=== PATIENT | male | born 1955 | race Caucasian/White ===

== ENCOUNTER 2019-11-19 15:31 | Inpatient (IN) | payer BC ==
[2019-11-19] MEDS ORDERED: ASPIRIN 81 MG CHEWABLE TABLETS PO ONE (15:36)
--- NOTE | 2019-11-19 15:36 | PDOC ---
Rapid Medical Evaluation Time Seen by Provider: 11/19/19 15:33 Medical Evaluation: Allergies Allergy/AdvReac Type Severity Reaction Status Date / Time No Known Allergies Allergy Unverified 03/30/14 07:56 11/19/19 15:33 I have performed a brief in-person evaluation of this patient. The patient presents with a chief complaint of: hx of HTN, HLD. c/o chest pain/ heaviness since last night. PCP: Dr. Spann Cards: [place] Pertinent physical exam findings: well appearing, lungs CTAB I have ordered the following: cards workup The patient will proceed to the ED for further evaluation. Discharge Disposition - Diagnosis Chest pain - Referrals Referrals: Cristian Spann MD [Primary Care Provider] - - Patient Instructions - Post Discharge Activity
[2019-11-19 15:38] VITALS: BMI 29.1
--- NOTE | 2019-11-19 16:25 | PDOC ---
History of Present Illness - History of Present Illness Initial Comments: 11/19/19 17:13 64 yo M PMH HTN, HLD, mild aortic regurgitation (equipment specialist is Dr. Sanchez), presenting with chest pain. Reports that it began last night, 5, pressure across his entire chest, non- radiating, associated with SOMERS but without SOB at rest, also without nausea or vomiting. Has never had this type of pain before, and it is ongoing; kept him from sleeping well overnight. Notably, patient drove back from [place] last night ([address] Specifically denies history of DVT or clots, recent surgery/immobilization, hemoptysis. 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 <Skye Onofre - Last Filed: 11/22/19 17:04> <Alva Dominguez - Last Filed: 11/24/19 12:46> - General Chief Complaint: Chest Pain Stated Complaint: CHEST PAIN Time Seen by Provider: 11/19/19 15:33 Past History - Past Medical History Cardiac Disorders: Yes (MILD AORTIC REGURGITATION) HTN: Yes Hypercholesterolemia: Yes - Psycho Social/Smoking Cessation Hx Smoking History: Never smoked Have you smoked in the past 12 months: No Hx Alcohol Use: No Drug/Substance Use Hx: No Substance Use Type: None <Skye Onofre - Last Filed: 11/22/19 17:04> <Alva Dominguez - Last Filed: 11/24/19 12:46> - Past Medical History Allergies/Adverse Reactions: Allergies Allergy/AdvReac Type Severity Reaction Status Date / Time No Known Allergies Allergy Unverified 03/30/14 07:56 Home Medications: Ambulatory Orders Irbesartan 150 mg PO DAILY 03/30/14 Amlodipine Besylate [Norvasc -] 2.5 mg PO DAILY #30 tablet 01/12/16 Atorvastatin Ca [Lipitor] 10 mg PO HS 11/19/19 Metoprolol Succinate [Toprol XL -] 25 mg PO DAILY #30 tab.sr.24h 11/20/19 Review of Systems - Review of Systems Comments:: 11/19/19 17:23 GENERAL/CONSTITUTIONAL: denies fever, chills, diaphoresis, generalized weakness , malaise, loss of appetite, weight change HEAD, EYES, EARS, NOSE AND THROAT: denies rhinorrhea, nasal congestion, throat pain, throat swelling, difficulty swallowing, mouth swelling, ear pain, eye pain , visual changes NEUROLOGIC: denies headache, focal weakness or paresthesias, dizziness, unsteady gait, seizure, mental status changes, bladder or bowel incontinence CARDIOVASCULAR: endorses chest pain and SOMERS. Denies syncope, palpitations, irregular heart rate, lightheadedness, peripheral edema RESPIRATORY: denies cough, shortness of breath, dyspnea with exertion, orthopnea , wheezing, stridor, hemoptysis GASTROINTESTINAL: denies abdominal pain, abdominal distension, nausea, vomiting , diarrhea, constipation, melena, hematochezia GENITOURINARY: denies dysuria, frequency, urgency, hesitancy, hematuria, flank pain, genital pain MUSCULOSKELETAL: denies myalgia, arthralgia, joint swelling, back pain, neck pain SKIN: denies rash, itching, pallor HEMATOLOGIC/IMMUNOLOGIC: denies easy bleeding, easy bruising, lymphadenopathy, frequent infections ENDOCRINE: denies unexplained weight gain, unexplained weight loss, heat intolerance, cold intolerance PSYCHIATRIC: denies anxiety, depression, suicidal or homicidal ideation, hallucinations <Skye Onofre - Last Filed: 11/22/19 17:04> *Physical Exam - Vital Signs Last Vital Signs Temp Pulse Resp BP Pulse Ox 97.8 F 85 20 148/86 98 11/19/19 15:33 11/19/19 15:33 11/19/19 15:33 11/19/19 15:33 11/19/19 15:33 - Physical Exam 11/22/19 17:52 Gen: well-developed, well-nourished, NAD Neuro: AAOX4, CN II-XII intact, FTN intact, EOMI, PERRLA, 5/5 strength, SILT HEENT: atraumatic, normocephalic Neck: trachea midline, supple CV: regular rate, regular rhythm, no murmurs, rubs, or gallops Pulm: CTA b/l, no wheezing Abd: soft, non-distended, non-tender MSK: full ROM, intact pulses Extr: no edema, no deformities Skin: warm, dry <Skye Onofre - Last Filed: 11/22/19 17:04> - Vital Signs Last Vital Signs Temp Pulse Resp BP Pulse Ox 98.2 F 67 18 139/78 98 11/20/19 16:48 11/20/19 16:48 11/20/19 16:48 11/20/19 16:48 11/20/19 16:48 <Alva Dominguez - Last Filed: 11/24/19 12:46> Heart Score/ECG Review - History History: Moderately suspicious - Electrocardiogram EKG: Normal - Age Age: 45-65 - Risk Factors Risk Factors Heart Score: Yes Hx Hypercholesterolemia, Yes Hx Hypertension Based on the list above the patient has:: 1-2 risk factors <Skye Onofre - Last Filed: 11/22/19 17:04> ED Treatment Course - LABORATORY CBC & Chemistry Diagram: 11/20/19 05:57 11/20/19 06:00 <Skye Onofre - Last Filed: 11/22/19 17:04> - LABORATORY CBC & Chemistry Diagram: 11/20/19 05:57 11/20/19 06:00 - ADDITIONAL ORDERS Additional order review: 11/19/19 15:50 RBC 4.12 MCV 97.0 H MCHC 33.2 RDW 14.2 MPV 9.9 Neutrophils % 73.7 Lymphocytes % 14.5 D Monocytes % 11.0 H Eosinophils % 0.4 Basophils % 0.4 - Medications Given in the ED: ED Medications Discontinued Medications Generic Name Dose Route Start Last Admin Trade Name Freq PRN Reason Stop Dose Admin Acetaminophen 975 mg 11/19/19 17:54 11/19/19 19:46 Tylenol - PO 11/19/19 17:55 975 mg ONCE ONE Administration Aspirin 162 mg 11/19/19 15:36 11/19/19 16:50 Asa - PO 11/19/19 15:37 162 mg ONCE ONE Administration Aspirin 162 mg 11/20/19 03:17 11/20/19 03:51 Asa - PO 11/20/19 03:18 162 mg ONCE ONE Administration Aspirin 81 mg 11/20/19 10:00 11/20/19 10:13 Asa - PO 81 mg DAILY GABE Administration Atorvastatin Calcium 80 mg 11/20/19 04:10 11/20/19 05:54 Lipitor - PO 11/20/19 04:11 80 mg ONCE ONE Administration Clopidogrel Bisulfate 300 mg 11/20/19 03:17 11/20/19 03:51 Plavix - PO 11/20/19 03:18 300 mg ONCE ONE Administration Clopidogrel Bisulfate 75 mg 11/20/19 10:00 11/20/19 10:13 Plavix - PO 75 mg DAILY GABE Administration Enoxaparin Sodium 80 mg 11/20/19 03:17 11/20/19 03:51 Lovenox - SQ 11/20/19 03:18 80 mg ONCE ONE Administration Enoxaparin Sodium 20 mg 11/20/19 04:45 11/20/19 05:54 Lovenox - SQ 11/20/19 04:46 20 mg ONCE ONE Administration Enoxaparin Sodium 100 mg 11/20/19 15:00 11/20/19 15:50 Lovenox - SQ 100 mg Q12H GABE Administration Metoprolol Tartrate 25 mg 11/20/19 10:00 11/20/19 15:50 Lopressor - PO 25 mg BID GABE Administration Nitroglycerin 0.4 mg 11/19/19 18:11 11/19/19 19:46 Nitrostat - SL 11/19/19 18:12 0.4 mg ONCE ONE Administration Regadenoson 0.4 mg 11/20/19 12:00 11/20/19 12:55 Lexiscan IVPUSH 11/20/19 12:01 0.4 mg ONCE ONE Administration <DominguezAlva Maylin - Last Filed: 11/24/19 12:46> Medical Decision Making - Medical Decision Making 11/19/19 17:32 Concern for ACS vs PE. Wells score 0, so will get D-dimer for r/o PE. - CBC, CMP - EKG, CXR - cardiac profile - D-dimer - patient received 162mg aspirin already 11/19/19 17:47 EKG normal sinus at 73 bpm, no ischemic changes. Labs unremarkable, trop negative. Heart score of 3, consistent with low risk for MACE within 6 weeks. Patient complaining of ongoing pain. Will give 975mg PO acetaminophen. 11/19/19 17:58 CXR without acute pathology. Will f/u D-dimer. If negative, will contact Dr. Sanchez to get his recommendations. Assuming patient's pain resolves, possible dc for further outpatient management by primary care and cardiology. 11/19/19 18:22 D-dimer positive. Will get chest CTA. Cr 1. <Skye Onofre - Last Filed: 11/22/19 17:04> Discharge - Discharge Information Problems reviewed: Yes - Admission No <Skye Onofre - Last Filed: 11/22/19 17:04> - Discharge Information Problems reviewed: Yes - Admission Yes <Alva Dominguez - Last Filed: 11/24/19 12:46> - Discharge Information Clinical Impression/Diagnosis: Chest pain, Chest pain, rule out acute myocardial infarction Condition: Stable
[2019-11-19 16:26] LABS: BASO % 0.4 % (0-2.0); EOS % 0.4 % (0-4.5); HEMOGLOBIN 13.3 GM/dL (11.7-16.9); LYMPH % 14.5 % (8-40); MCH 32.2 pg (25.7-33.7); MCHC 33.2 g/dl (32.0-35.9); MEAN PLT VOLUME 9.9 fl (7.5-11.1); NEUT % 73.7 % (42.8-82.8); PLATELET COUNT 141 K/MM3 (134-434); RBC 4.12 M/mm3 (4.00-5.60); RDW 14.2 % (11.9-15.9); WHITE BLOOD COUNT 6.3 K/mm3 (4.0-10.0)
[2019-11-19] MEDS ORDERED: ASPIRIN 81 MG CHEWABLE TABLETS ONE (16:48)
[2019-11-19 16:49] LABS: ALBUMIN 3.5 g/dl (3.4-5.0); BILIRUBIN,TOTAL 1.1 mg/dL (0.2-1); BLOOD UREA NITROGEN 16.5 mg/dL (7-18); CALCIUM 9.4 mg/dL (8.5-10.1); MAGNESIUM 2.1 mg/dL (1.8-2.4); POTASSIUM 4.2 mmol/L (3.5-5.1); TOT PROT 6.7 g/dl (6.4-8.2)
--- NOTE | 2019-11-19 17:07 | PDOC ---
Attending Attestation - Resident Resident Name: Skye Onofre - ED Attending Attestation I have performed the following: I have examined & evaluated the patient, The case was reviewed & discussed with the resident, I agree w/resident's findings & plan - HPI HPI: 11/19/19 18:00 64 yo M PMH HTN, HLD, mild aortic regurgitation (finance consultant is Dr. Sanchez), presenting with substernal/anterior chest pain since last night. described as chest "heaviness," no radiating features, a/w exertion and walking up flight of stairs. Reports that it began last night, 02/07, pressure across his entire chest, non- radiating, associated with SOMERS but without SOB at rest, also without nausea or vomiting. no prior symptoms of this type of chest pain. Notably, patient drove back from [place] last night (2.[address] Specifically denies history of DVT or clots, recent surgery/immobilization, hemoptysis. 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 relatively mobile and ambulatory.. 11/19/19 18:14 - Physicial Exam PE: 11/19/19 17:06 Agree with the resident's HPI and PE as documented in the electronic medical record. NAD, well appearing, EOMI, PERRL, nl conjunctiva, anicteric; neck supple. lungs clear, RRR, no murmur, abdomen soft nontender. No rebound, no guarding. Back nontender. MCMILLAN x4, no focal neuro deficits. No peripheral edema. normal color for ethnicity, WWP. no calf tenderness 11/20/19 09:29 - Medical Decision Making 11/19/19 17:06 Vital Signs Temp Pulse Resp BP Pulse Ox 97.8 F 85 20 148/86 98 11/19/19 15:33 11/19/19 15:33 11/19/19 15:33 11/19/19 15:33 11/19/19 15:33 VS reviewed, wnl, reassuring. DDx chest pain: ACS, coronary vasospasm, NSTEMI, arrhythmia, unstable angina, PE , dissection, PUD, esophageal spasm, GERD, gastritis, costochondritis, pneumonia , pleurisy, pericarditis/myocarditis. dehydration, electrolyte/metabolic derangements. Considered but clinically doubt based on HPI and PE: Low suspicion for pulmonary embolism or dissection. Chest pain negative: No evidence of ACS, pericarditis, myocarditis, pulmonary embolism, pneumothorax, pneumonia, Zoster, or esophageal perforation. Historically not abrupt in onset, tearing or ripping, pulses symmetric, no evidence of aortic dissection. 11/19/19 17:53 EKG normal sinus rhythm at 73 bpm, no interval abnormalities, narrow QRS, ST and T wave segments and morphology normal. Chest pain HEART score 4 which denotes mod risk and probability for ACS, less than 14-16% risk for MACE at 4-6 wks given analgesia here, 5/10, chest "heaviness" anteriorly/substernal, a/w SOB and exertional component. trial nitroglycerin 0.4mg x1, cards cs with Dr Sanchez. 11/19/19 18:01 Interpreted by ED Physician: CXR (2 view): no acute abnormality: no infiltrates , bones appear intact and structures normal alignment, cardiac silhouette within normal limits. no free air under diaphragm, no pneumothorax. CTA indicated with +dimer, and cp/sob, wells score is low (zero) without hemoptysis, no malignancy. no prolonged immobilization/surgeries. more likely ACS, cardiac related cp/unstable angina. CTA results pending - unremarkable for PE, incidental granulomas serial trop, EKG/tele monitor, pain control, provocative testing, d/w Dr Mosher, service control operator for Dr Sanchez admit observation tele for chest pain, KIMBERLEY. 11/20/19 09:29 11/20/19 09:29 Heart Score/ECG Review - History History: Moderately suspicious - Electrocardiogram EKG: Normal - Age Age: 45-65 - Risk Factors Risk Factors Heart Score: Yes Hx Hypercholesterolemia, Yes Hx Hypertension, Yes Positive family hx of cardiac disease Based on the list above the patient has:: >/=3 risk factors or Hx atherosclerotic disease - Troponin Troponin: </= normal limit - Score Heart Score - Total: 4 #1 ECG reviewed & interpreted by me at: 17:40 General ECG Interpretation: Sinus Rhythm, Normal Rate, Normal Intervals 11/19/19 17:59 EKG normal sinus rhythm at 73 bpm, no interval abnormalities, narrow QRS, ST and T wave segments and morphology normal.
[2019-11-19] MEDS ORDERED: ACETAMINOPHEN 500 MG TABLET (FP) PO ONE (17:54)
[2019-11-19 18:06] LABS: INR 1.15 (0.83-1.09); PROTHROMBIN TIME (PATIENT) 13.6 SEC (9.7-13.0)
[2019-11-19 18:09] LABS: ACTIVATED PTT 30.3 SECONDS (25.2-36.5)
[2019-11-19] MEDS ORDERED: NITROGLYCERIN SUBLINGUAL 1/150 0.4 MG TAB SL ONE (18:11)
[2019-11-19] MEDS ORDERED: ACETAMINOPHEN 325 MG TABLET (FP) ONE (19:28)
[2019-11-19] MEDS ORDERED: NITROGLYCERIN SUBLINGUAL 1/150 0.4 MG TAB ONE (19:28)
--- NOTE | 2019-11-19 20:06 | PDOC ---
*Physical Exam - Vital Signs Last Vital Signs Temp Pulse Resp BP Pulse Ox 97.8 F 79 18 130/80 96 11/19/19 15:33 11/19/19 16:45 11/19/19 16:45 11/19/19 16:45 11/19/19 16:45 <Rico Dc - Last Filed: 11/19/19 21:31> - Vital Signs Last Vital Signs Temp Pulse Resp BP Pulse Ox 98.2 F 67 18 139/78 98 11/20/19 16:48 11/20/19 16:48 11/20/19 16:48 11/20/19 16:48 11/20/19 16:48 <Alva Dominguezmario - Last Filed: 11/24/19 12:47> Heart Score/ECG Review - History History: Moderately suspicious - Electrocardiogram EKG: Normal - Age Age: 45-65 - Risk Factors Risk Factors Heart Score: Yes Hx Hypercholesterolemia, Yes Hx Hypertension Based on the list above the patient has:: 1-2 risk factors - Troponin Troponin: </= normal limit - Score Heart Score - Total: 3 <Rico Dc - Last Filed: 11/19/19 21:31> ED Treatment Course - LABORATORY CBC & Chemistry Diagram: 11/19/19 15:50 11/19/19 15:50 - ADDITIONAL ORDERS Additional order review: Laboratory Results 11/19/19 11/19/19 11/19/19 17:20 17:10 15:50 PT with INR 13.60 H INR 1.15 H PTT (Actin FS) 30.3 D-Dimer 1227 H Sodium 141 Potassium 4.2 Chloride 109 H Carbon Dioxide 27 Anion Gap 5 L BUN 16.5 Creatinine 1.0 Est GFR (CKD-EPI)AfAm 91.78 Est GFR (CKD-EPI)NonAf 79.19 Random Glucose 89 Calcium 9.4 Magnesium 2.1 Total Bilirubin 1.1 H AST 12 L ALT 21 Alkaline Phosphatase 52 Creatine Kinase Troponin I Total Protein 6.7 Albumin 3.5 11/19/19 15:50 PT with INR INR PTT (Actin FS) D-Dimer Sodium Potassium Chloride Carbon Dioxide Anion Gap BUN Creatinine Est GFR (CKD-EPI)AfAm Est GFR (CKD-EPI)NonAf Random Glucose Calcium Magnesium Total Bilirubin AST ALT Alkaline Phosphatase Creatine Kinase 42 Troponin I < 0.02 Total Protein Albumin 11/19/19 15:50 RBC 4.12 MCV 97.0 H MCHC 33.2 RDW 14.2 MPV 9.9 Neutrophils % 73.7 Lymphocytes % 14.5 D Monocytes % 11.0 H Eosinophils % 0.4 Basophils % 0.4 - Medications Given in the ED: ED Medications Discontinued Medications Generic Name Dose Route Start Last Admin Trade Name Freq PRN Reason Stop Dose Admin Aspirin 162 mg 11/19/19 15:36 11/19/19 16:50 Asa - PO 11/19/19 15:37 162 mg ONCE ONE Administration <Rico Dc - Last Filed: 11/19/19 21:31> - LABORATORY CBC & Chemistry Diagram: 11/20/19 05:57 11/20/19 06:00 - ADDITIONAL ORDERS Additional order review: 11/19/19 15:50 RBC 4.12 MCV 97.0 H MCHC 33.2 RDW 14.2 MPV 9.9 Neutrophils % 73.7 Lymphocytes % 14.5 D Monocytes % 11.0 H Eosinophils % 0.4 Basophils % 0.4 - Medications Given in the ED: ED Medications Discontinued Medications Generic Name Dose Route Start Last Admin Trade Name Freq PRN Reason Stop Dose Admin Acetaminophen 975 mg 11/19/19 17:54 11/19/19 19:46 Tylenol - PO 11/19/19 17:55 975 mg ONCE ONE Administration Aspirin 162 mg 11/19/19 15:36 11/19/19 16:50 Asa - PO 11/19/19 15:37 162 mg ONCE ONE Administration Aspirin 162 mg 11/20/19 03:17 11/20/19 03:51 Asa - PO 11/20/19 03:18 162 mg ONCE ONE Administration Aspirin 81 mg 11/20/19 10:00 11/20/19 10:13 Asa - PO 81 mg DAILY GABE Administration Atorvastatin Calcium 80 mg 11/20/19 04:10 11/20/19 05:54 Lipitor - PO 11/20/19 04:11 80 mg ONCE ONE Administration Clopidogrel Bisulfate 300 mg 11/20/19 03:17 11/20/19 03:51 Plavix - PO 11/20/19 03:18 300 mg ONCE ONE Administration Clopidogrel Bisulfate 75 mg 11/20/19 10:00 11/20/19 10:13 Plavix - PO 75 mg DAILY GABE Administration Enoxaparin Sodium 80 mg 11/20/19 03:17 11/20/19 03:51 Lovenox - SQ 11/20/19 03:18 80 mg ONCE ONE Administration Enoxaparin Sodium 20 mg 11/20/19 04:45 11/20/19 05:54 Lovenox - SQ 11/20/19 04:46 20 mg ONCE ONE Administration Enoxaparin Sodium 100 mg 11/20/19 15:00 11/20/19 15:50 Lovenox - SQ 100 mg Q12H GABE Administration Metoprolol Tartrate 25 mg 11/20/19 10:00 11/20/19 15:50 Lopressor - PO 25 mg BID GABE Administration Nitroglycerin 0.4 mg 11/19/19 18:11 11/19/19 19:46 Nitrostat - SL 11/19/19 18:12 0.4 mg ONCE ONE Administration Regadenoson 0.4 mg 11/20/19 12:00 11/20/19 12:55 Lexiscan IVPUSH 11/20/19 12:01 0.4 mg ONCE ONE Administration <Alva Dominguez - Last Filed: 11/24/19 12:47> Medical Decision Making - Medical Decision Making 11/19/19 19:07 Sign-out received from Dr. Cannon 64yo htn hld AR (Dr. Sanchez) with chest pain since last night 02/07, SOMERS, new pain. EKG wnl CXR normal Trop negative Labs wnl Hypoxic to low 90s Pending CTPE F/u Trop Dispo: Tele Obs for Unstable Angina / r/o ACS PCP: Cristian Spann 11/19/19 20:06 - No gross PE on limited CTPE study 11/19/19 20:30 - Repeat Troponin negative 11/19/19 20:48 - Sign-out given to hospitalist team 11/19/19 21:27 - EKG from 15:46, not noted in sign-out demonstrating a 4:1 Atrial Flutter Pattern <Rico Dc - Last Filed: 11/19/19 21:31> - Medical Decision Making I had reviewed the ECG, initial had inconsistent baseline in several leads. sinus rhythm with p WAVES PRESENT it is NOT A flutter as dictated by the machine. please see attg attestation, as repeat ECG showed sinus rhythm. 11/24/19 12:46 <Alva Dominguez - Last Filed: 11/24/19 12:47> Discharge - Discharge Information Problems reviewed: Yes <Rico Dc - Last Filed: 11/19/19 21:31> - Admission Yes <Alva Dominguez - Last Filed: 11/24/19 12:47> - Discharge Information Clinical Impression/Diagnosis: Chest pain, Chest pain, rule out acute myocardial infarction Condition: Stable
--- NOTE | 2019-11-19 21:24 | HP ---
CHIEF COMPLAINT: chest pain PCP: Dr. Spann HISTORY OF PRESENT ILLNESS: 64 y.o. M PMH HTN, HLD, mild AR presenting for chest pain. The chest pain began earlier this evening after a car ride from [place]; described as 5/10, substernal, non-radiating, not reproducible, pleuritic on admission but not during my exam. He has never felt this type pain before. Upon arrival to the ED patient was given 162mg ASA, SL nitro, 1g tylenol w/ some resolution of his chest pain. Also reported to be SOB on admission; found to have slightly elevated D-dimer. CTA chest negative for gross PE. A- flutter noted on 1st EKG; NSR on 2nd EKG shortly after. Neg trops x2, chest pain is resolving. Patient noted during CT scan when he lifted his arms the chest pain worsened, but has since subsided. ER course was notable for: (1) trops neg x 2 (2) EKG NSR no ST changes no t inversions (3) Recent Travel: [address] from [place] MEDICAL HISTORY: as per hpi PAST SURGICAL HISTORY: denies Social History: Smoking: distant history, none currently Alcohol: occasional, had 1 bourbon last night Drugs: denies Allergies No Known Allergies Allergy (Unverified 03/30/14 07:56) HOME MEDICATIONS: Home Medications Medication Instructions Recorded Irbesartan 150 mg PO DAILY 03/30/14 Amlodipine Besylate [Norvasc -] 2.5 mg PO DAILY #30 tablet 01/12/16 Atorvastatin Ca [Lipitor] 10 mg PO HS 11/19/19 REVIEW OF SYSTEMS CONSTITUTIONAL: Absent: fever, chills, diaphoresis, generalized weakness, malaise, loss of appetite, weight change HEENT: Absent: rhinorrhea, nasal congestion, throat pain, throat swelling, difficulty swallowing, mouth swelling, ear pain, eye pain, visual changes CARDIOVASCULAR: chest pain Absent: syncope, palpitations, irregular heart rate, lightheadedness, peripheral edema RESPIRATORY: dyspnea with exertion Absent: cough, shortness of breath, orthopnea, wheezing, stridor, hemoptysis GASTROINTESTINAL: Absent: abdominal pain, abdominal distension, nausea, vomiting, diarrhea, constipation, melena, hematochezia GENITOURINARY: Absent: dysuria, frequency, urgency, hesitancy, hematuria, flank pain, genital pain MUSCULOSKELETAL: Absent: myalgia, arthralgia, joint swelling, back pain, neck pain SKIN: Absent: rash, itching, pallor HEMATOLOGIC/IMMUNOLOGIC: Absent: easy bleeding, easy bruising, lymphadenopathy, frequent infections ENDOCRINE: Absent: unexplained weight gain, unexplained weight loss, heat intolerance, cold intolerance NEUROLOGIC: Absent: headache, focal weakness or paresthesias, dizziness, unsteady gait, seizure, mental status changes, bladder or bowel incontinence PSYCHIATRIC: Absent: anxiety, depression, suicidal or homicidal ideation, hallucinations. PHYSICAL EXAMINATION Vital Signs - 24 hr 11/19/19 11/19/19 11/19/19 15:33 16:45 19:30 Temperature 97.8 F Pulse Rate 85 Pulse Rate [ 79 75 Apical] Respiratory 20 18 17 Rate Blood Pressure 148/86 Blood Pressure 130/80 134/76 [Right Arm] O2 Sat by Pulse 98 96 98 Oximetry (%) GENERAL: Awake, alert, and fully oriented, in no acute distress. HEENT: NCAT. Conjunctiva clear. MMM. LUNGS: CTABL. No wheezes, and no crackles. No accessory muscle use. HEART:RRR, normal S1 and S2 without murmurs. No pain on chest palpation. ABDOMEN: Soft NTND, + bowel sounds, no guarding, no rebound, no masses. EXTREMITIES: 2+ pulses, warm, well-perfused. No peripheral edema. PSYCHIATRIC: Appropriate mood and affect. SKIN: Warm, dry, no rashes or lesions noted Laboratory Results - last 24 hr 11/19/19 11/19/19 11/19/19 15:50 15:50 15:50 WBC 6.3 RBC 4.12 Hgb 13.3 Hct 40.0 MCV 97.0 H MCH 32.2 MCHC 33.2 RDW 14.2 Plt Count 141 MPV 9.9 Absolute Neuts (auto) 4.7 Neutrophils % 73.7 Lymphocytes % 14.5 D Monocytes % 11.0 H Eosinophils % 0.4 Basophils % 0.4 Nucleated RBC % 0 PT with INR INR PTT (Actin FS) D-Dimer Sodium 141 Potassium 4.2 Chloride 109 H Carbon Dioxide 27 Anion Gap 5 L BUN 16.5 Creatinine 1.0 Est GFR (CKD-EPI)AfAm 91.78 Est GFR (CKD-EPI)NonAf 79.19 Random Glucose 89 Calcium 9.4 Magnesium 2.1 Total Bilirubin 1.1 H AST 12 L ALT 21 Alkaline Phosphatase 52 Creatine Kinase 42 Troponin I < 0.02 Total Protein 6.7 Albumin 3.5 11/19/19 11/19/19 11/19/19 17:10 17:20 19:30 WBC RBC Hgb Hct MCV MCH MCHC RDW Plt Count MPV Absolute Neuts (auto) Neutrophils % Lymphocytes % Monocytes % Eosinophils % Basophils % Nucleated RBC % PT with INR 13.60 H INR 1.15 H PTT (Actin FS) 30.3 D-Dimer 1227 H Sodium Potassium Chloride Carbon Dioxide Anion Gap BUN Creatinine Est GFR (CKD-EPI)AfAm Est GFR (CKD-EPI)NonAf Random Glucose Calcium Magnesium Total Bilirubin AST ALT Alkaline Phosphatase Creatine Kinase Troponin I < 0.02 Total Protein Albumin ASSESSMENT/PLAN: 64 y.o. M PMH HTN, HLD, mild AR presenting for chest pain. #Unstable angina -No EKG changes, neg trop x 2 -f/u trop in 6hrs -repeat EKG in AM -resolution of pain w/ SL nitro & 1g tylenol -ASA 324mg x1 dose, continue daily 81mg asa, daily high intensity statin, plavix 300mg x1dose, continue daily 75mg plavix, therapeutic lovenox -f/u echo -u-tox negative, may consider starting low dose bb -CTA chest-- limited view although show no gross PE -Cardio consulted (Dr. Sanchez) #Lung granulomas -incidental finding -noted on CTA, b/l upper lobe calcifications likely representing granulomas -will need outpatient follow up for these findings #HTN -continue to monitor BP -reinstate honme BP meds when appropriate #HLD -high dose statin -f/u lipid panel #FEN -no standing fluids -trend lytes replete prn -npo-- f/u cardio recs #PPX -SCDs #Dispo telemetry Visit type - Emergency Visit Emergency Visit: Yes ED Registration Date: 11/20/19 Care time: The patient presented to the Emergency Department on the above date and was hospitalized for further evaluation of their emergent condition. - New Patient This patient is new to me today: Yes Date on this admission: 11/20/19 - Critical Care Critical Care patient: No ATTENDING PHYSICIAN STATEMENT I saw and evaluated the patient. I reviewed the resident's note and discussed the case with the resident. I agree with the resident's findings and plan as documented. SUBJECTIVE: OBJECTIVE: ASSESSMENT AND PLAN:
--- NOTE | 2019-11-19 23:12 | PN ---
Teaching Attending Note Name of Resident: Pauline Ram ATTENDING PHYSICIAN STATEMENT I saw and evaluated the patient. I reviewed the resident's note and discussed the case with the resident. I agree with the resident's findings and plan as documented. 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 Chest pain was rated as a 5 out of 10 when I spoke to patient, constant. Was reported to have responded to nitroglycerin sublingually when previously administered.Chest CTA in the emergency room was negative for PE.Patient reports a history of intermittent smoking and a positive family history of cardiac disease in his fatherfather had Cardiac stent placed when he was in his 50s. OBJECTIVE: Last Vital Signs Temp Pulse Resp BP Pulse Ox 97.8 F 75 17 134/76 98 11/19/19 15:33 11/19/19 19:30 11/19/19 19:30 11/19/19 19:30 11/19/19 19:30 On physical exam patient appeared not in any acute distress, S1 plus, S2 plus regular rate and rhythm no murmurs, chest was clear to auscultation bilaterally. Abdomen was soft nontender with normal bowel sounds in 4 quadrants. Skin did not have any rashes, no pedal edema appreciated bilaterally. Abnormal Lab Results 11/19/19 11/19/19 11/19/19 15:50 15:50 17:10 MCV 97.0 H Monocytes % 11.0 H PT with INR INR D-Dimer 1227 H Chloride 109 H Anion Gap 5 L Total Bilirubin 1.1 H AST 12 L 11/19/19 17:20 MCV Monocytes % PT with INR 13.60 H INR 1.15 H D-Dimer Chloride Anion Gap Total Bilirubin AST Imaging studies reviewedno CT evidence of central pulmonary embolism. No gross peripheral embolus is seen. Minimal to mild bibasilar discoid atelectasis /scarring is appreciated. Punctate bilateral upper lobe calcifications possibly representing granulomas. Initial EKG performed in the emergency room showed which what appears to be artifact and subsequent EKG showed normal sinus rhythm with no ischemic changes. ASSESSMENT AND PLAN: 64-year-old male with what appears to be unstable angina as he has classic anginal chest pain which responded to nitroglycerin. Strong family history in his father of CAD makes this case even more suspicious. Negative troponins x2. Initial EKG was thought to have artifact versus possible A. fib versus a flutter. Second EKG showed normal sinus rhythm. Admit to telemetry Will repeat EKG as first EKG With questionable arrhythmia Status post aspirin loading dose, will load with clopidogrel 300 mg p.o., high- dose statin, Lovenox therapeutic dose Cardiology consultDr. Darlene Trend troponins Echo Monitor vital signs closely Aspirin Statin Nitroglycerin as needed
[2019-11-20 00:59] LABS: COCAINE, UR NEGATIVE ng/ml (CUTOFF=300); METHADONE, UR NEGATIVE ng/ml (CUTOFF=300); OPIATES, URI NEGATIVE ng/ml (CUTOFF=300); PHENCYCLIDINE,URINE NEGATIVE ng/ml (CUTOFF=25); URINE AMPHETAMINES NEGATIVE ng/ml (CUTOFF=500); URINE BARBITURATES NEGATIVE ng/ml (CUTOFF=200); URINE BENZODIAZEPINES NEGATIVE ng/ml (CUTOFF=200)
[2019-11-20] MEDS ORDERED: ENOXAPARIN NA (PORCINE) 80 MG/0.8 ML DISP.SYRIN SQ ONE ×2 (03:17→03:39)
[2019-11-20] MEDS ORDERED: CLOPIDOGREL BISULFATE 300 MG TABLET PO ONE (03:17)
[2019-11-20] MEDS ORDERED: ASPIRIN 81 MG CHEWABLE TABLETS PO ONE (03:17)
[2019-11-20] MEDS ORDERED: ATORVASTATIN CA 80 MG TABLET (FP) PO ONE (04:10)
[2019-11-20] MEDS ORDERED: ENOXAPARIN NA (PORCINE) 40 MG/0.4 ML DISP.SYRIN SQ ONE ×2 (04:45→05:46)
[2019-11-20] MEDS ORDERED: ATORVASTATIN CA 80 MG TABLET (FP) ONE (05:47)
[2019-11-20 07:08] LABS: BILIRUBIN,TOTAL 1.4 mg/dL (0.2-1); BLOOD UREA NITROGEN 15.4 mg/dL (7-18); CALCIUM 8.9 mg/dL (8.5-10.1); CREATININE 0.8 mg/dL (0.55-1.3); TOT PROT 6.1 g/dl (6.4-8.2)
[2019-11-20 07:13] LABS: BASO % 0.4 % (0-2.0); EOS % 0.8 % (0-4.5); HEMATOCRIT 35.4 % (35.4-49); HEMOGLOBIN 12.1 GM/dL (11.7-16.9); LYMPH % 14.8 % (8-40); MCH 32.5 pg (25.7-33.7); MCHC 34.1 g/dl (32.0-35.9); MEAN CELL VOLUME 95.3 fl (80-96); MEAN PLT VOLUME 9.6 fl (7.5-11.1); MONO % 10.1 % (3.8-10.2); NEUT % 73.9 % (42.8-82.8); PLATELET COUNT 125 K/MM3 (134-434); RBC 3.72 M/mm3 (4.00-5.60); RDW 14.2 % (11.9-15.9); WHITE BLOOD COUNT 5.8 K/mm3 (4.0-10.0)
[2019-11-20] MEDS ORDERED: NITROGLYCERIN SUBLINGUAL 1/150 0.4 MG TAB SL PRN (07:57)
--- NOTE | 2019-11-20 09:34 | EKG ---
Test Reason : Blood Pressure : / mmHG Vent. Rate : 073 BPM Atrial Rate : 073 BPM P-R Int : 128 ms QRS Dur : 082 ms QT Int : 384 ms P-R-T Axes : 024 014 034 degrees QTc Int : 423 ms NORMAL SINUS RHYTHM NORMAL ECG WHEN COMPARED WITH ECG OF 12-JAN-2016 20:13, NO SIGNIFICANT CHANGE WAS FOUND Confirmed by AXEL ADAM MD ([id number]) on 11/20/2019 9:34:15 AM Referred By: Confirmed By:AXEL ADAM MD
--- NOTE | 2019-11-20 09:34 | EKG ---
Test Reason : Blood Pressure : / mmHG Vent. Rate : 069 BPM Atrial Rate : 069 BPM P-R Int : 176 ms QRS Dur : 086 ms QT Int : 392 ms P-R-T Axes : 043 021 033 degrees QTc Int : 420 ms SINUS RHYTHM WITH PREMATURE ATRIAL COMPLEXES OTHERWISE NORMAL ECG WHEN COMPARED WITH ECG OF 19-NOV-2019 17:37, PREMATURE ATRIAL COMPLEXES ARE NOW PRESENT Confirmed by AXEL ADAM MD ([id number]) on 11/20/2019 9:34:02 AM Referred By: Confirmed By:AXEL ADAM MD
[2019-11-20] MEDS ORDERED: metoPROLOL SUCCINATE 25 MG TAB.SR.24H (FP) PO SCH (10:00)
[2019-11-20] MEDS ORDERED: CLOPIDOGREL BISULFATE 75 MG TABLET (FP) PO SCH (10:00)
[2019-11-20] MEDS ORDERED: ASPIRIN 81 MG CHEWABLE TABLETS PO SCH (10:00)
[2019-11-20] MEDS ORDERED: METOPROLOL TARTRATE 25 MG TABLET (FP) PO SCH (10:00)
[2019-11-20] MEDS ORDERED: REGADENOSON 0.4 MG/5 ML PRE-FILLED SYRINGE IVPUSH ONE ×2 (11:36→12:00)
--- NOTE | 2019-11-20 11:50 | CON.CARD ---
Cardiology Consult (text) - Consultation Consultation Note: cc: cp hpi: 64 m hx htn, hld, here with cp. Started about 2 days ago while at rest and had been constant. Mild, center chest, tightness. No associated sxs. No sob palps dizzy loc pnd orthopnea le edema. Gradually resolved, feels better now. Sees dr roldan for cardio. pmh: per hpi psh: none social: no tob fam: no premature cad, scd ros: per hpi; all others nl meds: Ambulatory Orders Irbesartan 150 mg PO DAILY 03/30/14 Amlodipine Besylate [Norvasc -] 2.5 mg PO DAILY #30 tablet 01/12/16 Atorvastatin Ca [Lipitor] 10 mg PO HS 11/19/19 pe: Vital Signs Period Temp Pulse Resp BP Sys/Del Valle Pulse Ox Last 24 Hr 97.6 F-98.0 F 60-85 17-21 101-148/62-86 96-99 nad no jvd rrr s1s2 no mrg cta bl nl eff aao3 no le e/c/c abd nt nd pos bs no jaundice diaphoresis pos dp pt no carotid bruits Laboratory Last Values WBC 5.8 K/mm3 (4.0-10.0) 11/20/19 05:57 RBC 3.72 M/mm3 (4.00-5.60) L 11/20/19 05:57 Hgb 12.1 GM/dL (11.7-16.9) 11/20/19 05:57 Hct 35.4 % (35.4-49) 11/20/19 05:57 MCV 95.3 fl (80-96) 11/20/19 05:57 MCH 32.5 pg (25.7-33.7) 11/20/19 05:57 MCHC 34.1 g/dl (32.0-35.9) 11/20/19 05:57 RDW 14.2 % (11.9-15.9) 11/20/19 05:57 Plt Count 125 K/MM3 (134-434) L 11/20/19 05:57 MPV 9.6 fl (7.5-11.1) 11/20/19 05:57 Absolute Neuts (auto) 4.3 K/mm3 (1.5-8.0) 11/20/19 05:57 Neutrophils % 73.9 % (42.8-82.8) 11/20/19 05:57 Lymphocytes % 14.8 % (8-40) 11/20/19 05:57 Monocytes % 10.1 % (3.8-10.2) 11/20/19 05:57 Eosinophils % 0.8 % (0-4.5) D 11/20/19 05:57 Basophils % 0.4 % (0-2.0) 11/20/19 05:57 Nucleated RBC % 0 % (0-0) 11/20/19 05:57 PT with INR 13.60 SEC (9.7-13.0) H 11/19/19 17:20 INR 1.15 (0.83-1.09) H 11/19/19 17:20 PTT (Actin FS) 30.3 SECONDS (25.2-36.5) 11/19/19 17:20 D-Dimer 1227 ng/ml (0-500) H 11/19/19 17:10 Sodium 139 mmol/L (136-145) 11/20/19 06:00 Potassium 4.0 mmol/L (3.5-5.1) 11/20/19 06:00 Chloride 108 mmol/L (98-107) H 11/20/19 06:00 Carbon Dioxide 26 mmol/L (21-32) 11/20/19 06:00 Anion Gap 5 MMOL/L (8-16) L 11/20/19 06:00 BUN 15.4 mg/dL (7-18) 11/20/19 06:00 Creatinine 0.8 mg/dL (0.55-1.3) 11/20/19 06:00 Est GFR (CKD-EPI)AfAm 109.42 11/20/19 06:00 Est GFR (CKD-EPI)NonAf 94.41 11/20/19 06:00 Random Glucose 108 mg/dL (74-106) H 11/20/19 06:00 Calcium 8.9 mg/dL (8.5-10.1) 11/20/19 06:00 Magnesium 2.1 mg/dL (1.8-2.4) 11/19/19 15:50 Total Bilirubin 1.4 mg/dL (0.2-1) H 11/20/19 06:00 AST 10 U/L (15-37) L 11/20/19 06:00 ALT 19 U/L (13-61) 11/20/19 06:00 Alkaline Phosphatase 48 U/L (45-117) 11/20/19 06:00 Creatine Kinase 42 U/L (26-308) 11/19/19 15:50 Troponin I < 0.02 ng/ml (0.00-0.05) 11/20/19 04:00 Total Protein 6.1 g/dl (6.4-8.2) L 11/20/19 06:00 Albumin 3.0 g/dl (3.4-5.0) L 11/20/19 06:00 Triglycerides 56 mg/dL (0-150) 11/20/19 06:00 Cholesterol 142 mg/dL (50-200) 11/20/19 06:00 Total LDL Cholesterol 78 mg/dL (5-100) 11/20/19 06:00 HDL Cholesterol 55 mg/dL (40-60) 11/20/19 06:00 Opiates Screen Negative ng/ml (CDPPHT=749) 11/20/19 00:08 Methadone Screen Negative ng/ml (EYURLF=334) 11/20/19 00:08 Barbiturate Screen Negative ng/ml (LNCCQY=846) 11/20/19 00:08 Phencyclidine Screen Negative ng/ml (CUTOFF=25) 11/20/19 00:08 Ur Amphetamines Screen Negative ng/ml (EGWJBD=447) 11/20/19 00:08 MDMA (Ecstasy) Screen Negative ng/ml (OYBCSV=733) 11/20/19 00:08 Benzodiazepines Screen Negative ng/ml (LVUQET=411) 11/20/19 00:08 Cocaine Screen Negative ng/ml (HBHXYH=759) 11/20/19 00:08 U Marijuana (THC) Screen Negative ng/ml (CUTOFF=50) 11/20/19 00:08 ecgs reviewed: sr nl intervals no ischemic changes cta chest: no pe, no chf a/p: 64 m hx htn, hld, here with cp. cp: -some atypical features (constant for 2 days with normal ce's), now improving -trops negx3, ecgs unremarkable -no signs acs or chf. can dc plavix. -check echo and nuclear stress test, if benign then ok for dc from cardiac pov htn: -cont bb hld: -cont statin
[2019-11-20 12:45] LABS: BILIRUBIN,DIRECT 0.3 mg/dL (0.0-0.2)
--- NOTE | 2019-11-20 13:33 | ECHO ---
Name: CARLOS LUBIN Exam:Adult Echocardiogram Study Date: 11/20/2019 09:00 AM Age: 64 yrs Reason For Study: Angina Height: 72 in Weight: 215 lb BSA: 2.2 m2 MMode/2D Measurements & Calculations IVSd: 1.2 cm Ao root diam: 3.0 cm LVIDd: 4.7 cm LA dimension: 4.1 cm LVIDs: 3.1 cm ACS: 2.0 cm LVPWd: 0.93 cm EDV(Teich): 100.2 ml LVOT diam: 2.0 cm ESV(Teich): 38.2 ml RV S Micheal: 13.0 cm/sec Doppler Measurements & Calculations MV E max micheal: 69.6 cm/sec Ao V2 max: 158.0 cm/sec MV A max micheal: 88.4 cm/sec Ao max P.0 mmHg MV E/A: 0.79 Ao V2 mean: 92.9 cm/sec MV dec time: 0.19 sec Ao mean P.4 mmHg Ao V2 VTI: 34.0 cm WILFRID(I,D): 2.5 cm2 AI P1/2t: 2795 msec WILFRID(V,D): 2.2 cm2 AI max micheal: 255.2 cm/sec LV V1 max P.3 mmHg AI max P.0 mmHg LV V1 mean P.7 mmHg AI dec slope: 26.7 cm/sec2 LV V1 max: 115.0 cm/sec LV V1 mean: 75.2 cm/sec LV V1 VTI: 28.6 cm MR max micheal: 249.8 cm/sec SV(LVOT): 85.9 ml MR max P.0 mmHg TR max micheal: 162.6 cm/sec PA V2 max: 71.1 cm/sec TR max P.6 mmHg PA max P.0 mmHg PI end-d micheal: 118.1 cm/sec Med Peak E' Micheal: 8.5 cm/sec Med E/e': 8.2 Lat Peak E' Micheal: 11.3 cm/sec Lat E/e': 6.2 Procedure A complete two-dimensional transthoracic echocardiogram was performed (2D, M-mode, Doppler and color flow Doppler). Left Ventricle The left ventricular size, thickness and function are normal. The left ventricular ejection fraction is normal. Ejection Fraction = 60-65%. The left ventricular wall motion is normal. Right Ventricle The right ventricle is normal in size and function. Atria Normal left and right atrial size and function. Mitral Valve There is no mitral regurgitation noted. Tricuspid Valve There is trace tricuspid regurgitation. Right ventricular systolic pressure is normal. Aortic Valve No hemodynamically significant valvular aortic stenosis. Trace to mild aortic regurgitation. Pulmonic Valve Trace pulmonic valvular regurgitation. Great Vessels The aortic root is normal size. Pericardium/Pleura There is no pericardial effusion. Interpretation Summary The left ventricular size, thickness and function are normal The right ventricle is normal in size and function. There is trace tricuspid regurgitation. Trace to mild aortic regurgitation. Trace pulmonic valvular regurgitation. MD Elliott Colon 11/20/2019 01:32 PM
[2019-11-20] MEDS ORDERED: ENOXAPARIN NA (PORCINE) 100 MG/1 ML DISP.SYRIN SQ SCH (15:00)
[2019-11-20] MEDS ORDERED: METOPROLOL TARTRATE 25 MG TABLET (FP) ONE (15:47)
[2019-11-20] MEDS ORDERED: ENOXAPARIN NA (PORCINE) 100 MG/1 ML DISP.SYRIN SQ ONE (15:47)
[2019-11-20] MEDS ORDERED: ACETAMINOPHEN 325 MG TABLET (FP) PO ONE (16:30)
--- NOTE | 2019-11-20 16:34 | DS ---
Physical Exam: SUBJECTIVE: Patient seen and examined OBJECTIVE: Vital Signs Period Temp Pulse Resp BP Sys/Del Valle Pulse Ox Last 24 Hr 97.6 F-98.0 F 60-79 17-21 101-145/62-84 96-99 PHYSICAL EXAM GENERAL: The patient is awake, alert, and fully oriented, in no acute distress. HEAD: Normal with no signs of trauma. EYES: PERRL, extraocular movements intact, sclera anicteric, conjunctiva clear. ENT: Ears normal, nares patent, oropharynx clear without exudates, moist mucous membranes. NECK: Trachea midline, full range of motion, supple. LUNGS: Breath sounds equal, clear to auscultation bilaterally, no wheezes, no crackles, no accessory muscle use. HEART: Regular rate and rhythm, S1, S2 without murmur, rub or gallop. ABDOMEN: Soft, nontender, nondistended, normoactive bowel sounds, no guarding, no rebound, no hepatosplenomegaly, no masses. EXTREMITIES: 2+ pulses, warm, well-perfused, no edema. NEUROLOGICAL: Cranial nerves II through XII grossly intact. Normal speech, gait not observed. PSYCH: Normal mood, normal affect. SKIN: Warm, dry, normal turgor, no rashes or lesions noted. LABS Laboratory Results - last 24 hr 11/19/19 11/19/19 11/19/19 15:50 15:50 17:10 WBC RBC Hgb Hct MCV MCH MCHC RDW Plt Count MPV Absolute Neuts (auto) Neutrophils % Lymphocytes % Monocytes % Eosinophils % Basophils % Nucleated RBC % ESR PT with INR INR PTT (Actin FS) D-Dimer 1227 H Sodium 141 Potassium 4.2 Chloride 109 H Carbon Dioxide 27 Anion Gap 5 L BUN 16.5 Creatinine 1.0 Est GFR (CKD-EPI)AfAm 91.78 Est GFR (CKD-EPI)NonAf 79.19 Random Glucose 89 Calcium 9.4 Magnesium 2.1 Total Bilirubin 1.1 H Direct Bilirubin AST 12 L ALT 21 Alkaline Phosphatase 52 Creatine Kinase 42 Troponin I < 0.02 C-Reactive Protein Total Protein 6.7 Albumin 3.5 Triglycerides Cholesterol Total LDL Cholesterol HDL Cholesterol Opiates Screen Methadone Screen Barbiturate Screen Phencyclidine Screen Ur Amphetamines Screen MDMA (Ecstasy) Screen Benzodiazepines Screen Cocaine Screen U Marijuana (THC) Screen 11/19/19 11/19/19 11/20/19 17:20 19:30 00:08 WBC RBC Hgb Hct MCV MCH MCHC RDW Plt Count MPV Absolute Neuts (auto) Neutrophils % Lymphocytes % Monocytes % Eosinophils % Basophils % Nucleated RBC % ESR PT with INR 13.60 H INR 1.15 H PTT (Actin FS) 30.3 D-Dimer Sodium Potassium Chloride Carbon Dioxide Anion Gap BUN Creatinine Est GFR (CKD-EPI)AfAm Est GFR (CKD-EPI)NonAf Random Glucose Calcium Magnesium Total Bilirubin Direct Bilirubin AST ALT Alkaline Phosphatase Creatine Kinase Troponin I < 0.02 C-Reactive Protein Total Protein Albumin Triglycerides Cholesterol Total LDL Cholesterol HDL Cholesterol Opiates Screen Negative Methadone Screen Negative Barbiturate Screen Negative Phencyclidine Screen Negative Ur Amphetamines Screen Negative MDMA (Ecstasy) Screen Negative Benzodiazepines Screen Negative Cocaine Screen Negative U Marijuana (THC) Screen Negative 11/20/19 11/20/19 11/20/19 04:00 05:57 06:00 WBC 5.8 RBC 3.72 L Hgb 12.1 Hct 35.4 MCV 95.3 MCH 32.5 MCHC 34.1 RDW 14.2 Plt Count 125 L MPV 9.6 Absolute Neuts (auto) 4.3 Neutrophils % 73.9 Lymphocytes % 14.8 Monocytes % 10.1 Eosinophils % 0.8 D Basophils % 0.4 Nucleated RBC % 0 ESR PT with INR INR PTT (Actin FS) D-Dimer Sodium 139 Potassium 4.0 Chloride 108 H Carbon Dioxide 26 Anion Gap 5 L BUN 15.4 Creatinine 0.8 Est GFR (CKD-EPI)AfAm 109.42 Est GFR (CKD-EPI)NonAf 94.41 Random Glucose 108 H Calcium 8.9 Magnesium Total Bilirubin 1.4 H Direct Bilirubin 0.3 H AST 10 L ALT 19 Alkaline Phosphatase 48 Creatine Kinase Troponin I < 0.02 C-Reactive Protein 3.2 H Total Protein 6.1 L Albumin 3.0 L Triglycerides 56 Cholesterol 142 Total LDL Cholesterol 78 HDL Cholesterol 55 Opiates Screen Methadone Screen Barbiturate Screen Phencyclidine Screen Ur Amphetamines Screen MDMA (Ecstasy) Screen Benzodiazepines Screen Cocaine Screen U Marijuana (THC) Screen 11/20/19 09:29 WBC RBC Hgb Hct MCV MCH MCHC RDW Plt Count MPV Absolute Neuts (auto) Neutrophils % Lymphocytes % Monocytes % Eosinophils % Basophils % Nucleated RBC % ESR 22 H PT with INR INR PTT (Actin FS) D-Dimer Sodium Potassium Chloride Carbon Dioxide Anion Gap BUN Creatinine Est GFR (CKD-EPI)AfAm Est GFR (CKD-EPI)NonAf Random Glucose Calcium Magnesium Total Bilirubin Direct Bilirubin AST ALT Alkaline Phosphatase Creatine Kinase Troponin I C-Reactive Protein Total Protein Albumin Triglycerides Cholesterol Total LDL Cholesterol HDL Cholesterol Opiates Screen Methadone Screen Barbiturate Screen Phencyclidine Screen Ur Amphetamines Screen MDMA (Ecstasy) Screen Benzodiazepines Screen Cocaine Screen U Marijuana (THC) Screen HOSPITAL COURSE: Date of Admission:11/20/19 Pt admitted for r/o ACS. Stress test negative, echo normal EF, normal LV,RV ftn. Pt seen by Dr. Colno and will f/u with Dr. Sanchez. Pt also found on CTA to have negative for PE but b/l granulomas and recommended he follow o/p with Dr. Ram for rpt CT and further assesment. Pt likely had muskuloskeletal cp and sent home on tylenol/ibuprofen prn for pain. Pt also started on metoprolol per cardios recs with close follow up with PCP. Pt told to follow up if any worsening of his current symptoms. Date of Discharge: 11/20/19 Discharge Summary Problems reviewed: Yes Reason For Visit: CHEST PAIN,RULE OUT ACUTE MYOCARDIAL INFARCTION Current Active Problems Atrial flutter by electrocardiogram (Chronic) Condition: Stable - Instructions Diet, Activity, Other Instructions: You presented with chest pain at rest. We monitored your heart function while here and had a plate former evaluate you (Dr. Sanchez). We obtained imaging studies of your heart and were found to be normal. Your chest pain was likely muscular in origin. You are stable enough for discharge. I recommend you take tylenol over the counter for your chest pain. Please do not take more than 650mg by mouth every 6 hours as needed for pain per day. You should follow up with your plate former (Dr. Sanchez) if you continue to have chest pain. You should follow up with your primary care physician in 1 week as well. You should follow up with your lung doctor (Dr. Ram) in 1 week to assess the calcifications (granulomas) we found on your lung on imaging here. You should continue all your home medications as prescribed as well. Please return to the ER if you have any acute worsening of your current symptoms or: chest pain, shortness of breath, abdominal pain, bowel/bladder complaints, numbness or tingling. Referrals: Oscar Ram MD [Staff Physician] - 1 Week Cristian Spann MD [Primary Care Provider] - 1 Week Ebenezer Sanchez MD [Staff Physician] - 1 Week Disposition: HOME - Home Medications Comprehensive Discharge Medication List: Ambulatory Orders Irbesartan 150 mg PO DAILY 03/30/14 Amlodipine Besylate [Norvasc -] 2.5 mg PO DAILY #30 tablet 01/12/16 Atorvastatin Ca [Lipitor] 10 mg PO HS 11/19/19 Metoprolol Succinate [Toprol XL -] 25 mg PO DAILY #30 tab.sr.24h 11/20/19 ATTENDING PHYSICIAN STATEMENT I saw and evaluated the patient. I reviewed the resident's note and discussed the case with the resident. I agree with the resident's findings and plan as documented. SUBJECTIVE: OBJECTIVE: ASSESSMENT AND PLAN:
[2019-11-20 16:49] VITALS: BP 139/78; PULSE 67; TEMP 98.2
--- NOTE | 2019-11-20 17:27 | PN ---
Teaching Attending Note Name of Resident: Rich Tabor ATTENDING PHYSICIAN STATEMENT I saw and evaluated the patient. I reviewed the resident's note and discussed the case with the resident. I agree with the resident's findings and plan as documented. Patient was seen and examined in the morning with resident team. Discussed with cardiology, the patient is getting a stress test. If is negative the patient may be discharged from a cardiovascular perspective. They recommended continue beta-blockers for his underlying hypertension statin for his of underlying hyperlipidemia. There is no ischemic changes noted on the EKGs and the CTA of the chest shows no PE. Patient has no evidence of any CHF or any worsening cardiopulmonary symptoms. The patient is also indicated as having normal laboratory values and was hemodynamically stable throughout his entire time here. ESR was only marginally elevated, EMY is pending and can be followed up with his outpatient provider. The patient is also noted to have a slightly elevated bilirubin with a high direct bilirubin but normal LFTs and asymptomatic, he was counseled on what symptoms to monitor for and he can follow -up with us as an outpatient. Right upper quadrant ultrasound is shown to have mild fatty inflammation of the liver versus hepatocellular disease Echocardiogram shows normal LV size thickness and function with normal right ventricle and trace TR and trace UT with no significant valvulopathy is noted in terms of hemodynamic abnormalities. Normal Lexiscan was noted. Patient's chest pain is noncardiac in etiology. Seen and examined; please see resident note for further historical information. I personally verified all zhu historical information and exam findings. Personally interpreted all imaging and diagnostics and reviewed appropriate consults. I reviewed all labs and vital signs as per resident note and EMR as documented. I agree with the above assessment and plan unless supplemented by myself in the following. 10 item review of systems completed and is negative aside from as discussed in the subjective data in my own/the resident documentation. VS, labs, imaging reviewed NAD, AAO, resting comfortably in bed. RRR s1/2 no mgr Normal muscle tone, moves all 5 extremities with normal apparent strength Neck is supple, trachea midline, no meghan LN Lungs CTAB with sym expansion NT ND +BS no meghan organomegaly CN2-12 wnl; no FND NC AT EOMI PERRLA Normal mood, appropriate behavior, euthymic affect No skin breakdown or rashes noted Agree with follow-ups and discharge planning as delineated in the resident note
[2019-11-21] MEDS ORDERED: ATORVASTATIN CA 80 MG TABLET (FP) PO SCH (22:00)
== END 2019-11-20 17:59 | disposition home or self-care (01) | DRG 313 ==
LOC: JER 15:31 → JERBED 20:30 → OBSVTOIN 11-20 03:51
PROVIDERS: ADMIT Internal Medicine; ATTEND Internal Medicine
DX: R07.89 Other chest pain (principal); I20.0 Unstable angina; E78.5 Hyperlipidemia, unspecified; I10 Essential (primary) hypertension; I35.1 Nonrheumatic aortic (valve) insufficiency; J84.10 Pulmonary fibrosis, unspecified; K76.0 Fatty (change of) liver, not elsewhere classified
CPT/HCPCS: 36415; 71045-TC-FY; 71275-TC; 76705-TC; 78452-TC; 80053; 80061; 80307; 82248; 82550; 83721; 83735; 84484; 85025; 85379; 85610; 85651; 85730; 86038; 86140; 86480; 93005; 93010; 93017; 93306-TC; 99285-25; A9502; G0378; J2785; Q9967